=== PATIENT | female | born 1980 | race Caucasian/White ===

== ENCOUNTER 2016-11-24 09:39 | Inpatient (IN) | payer BC ==
[~2016-11-24] VITALS: Ht 170.2 cm; Wt 118.2 kg
--- NOTE | ~2016-11-24 | OR ---
PATIENT'S NAME: DAHIANA KESSLER [facility] AGE: 35 Y [address] ROOM: [place] [address] LOCATION: GO ADMIT DATE: 11/24/2016 OR/Procedure Report DISCHARGE DATE: FAMILY PHYSICIAN: PHYSICIAN, UNKNOWN ATTENDING PHYSICIAN: ADONIS MORALES SURGEON: Adonis Morales MD ESTATE PLANNING PARALEGAL: Nguyen Dodge MD DATE OF PROCEDURE: 11/24/2016 PREOPERATIVE DIAGNOSES: 1. Intrauterine at 27 weeks and 1 day. 2. labor. 3. History of labor. 4. Obesity. POSTOPERATIVE DIAGNOSES: 1. Intrauterine at 27 weeks and 1 day. 2. labor. 3. History of labor. 4. Obesity. PROCEDURE PERFORMED: Primary vertical section. ANESTHESIA: General. FINDINGS: Viable female with score is pending, and weight of 1300 g. Placenta was intact with three-vessel cord. Cord pH is 7.34 with a base deficit of 3.4. ESTIMATED BLOOD LOSS: 1000 mL. COMPLICATIONS: None. INDICATIONS FOR PROCEDURE: The patient is a 35-year-old, G3, P-1-1-0-2 with intrauterine at 27 weeks and 1 day, who presented to the clinic today complaining of contractions every 3 minutes. She was checked and was found to be 400 with a bulging bag and baby was noted to be breech on ultrasound. She was sent over to the hospital. Upon arrival, she was found to be 5 cm, and 15 minutes later, she was found to be 6 cm. She did receive magnesium bolus and Celestone prior to this, but recommendation for delivery was made. The patient consented to section. DESCRIPTION OF PROCEDURE: The patient was taken to the operating room. A Villar catheter was already in place. She was placed in dorsal supine position with leftward tilt. She was then prepped and draped in the usual sterile PATIENT'S NAME: DAHIANA KESSLER [facility] AGE: 35 Y [address] ROOM: [place] [address] LOCATION: [facility] ADMIT DATE: 11/24/2016 OR/Procedure Report DISCHARGE DATE: FAMILY PHYSICIAN: PHYSICIAN, UNKNOWN ATTENDING PHYSICIAN: ADONIS MORALES fashion. General anesthesia was performed and a Pfannenstiel skin incision was made. This was carried down to the underlying fascia. The fascia was then nicked, and the fascia was extended bluntly. The rectus muscles were in the midline. The peritoneum was identified and entered bluntly. This was extended bluntly. A bladder blade was placed for visualization. A vertical incision was then made in the uterus. The feet were grasped. Contraction was noted, and buttocks could not be delivered. Therefore, the incision was extended with bandage scissors. The fetus was delivered to the level of the shoulders. Both arms were flexed and delivered. The head then could not be delivered. Therefore, the incision was again extended with bandage scissors and the head was then delivered. The cord was milked. The cord was then clamped and cut. The was handed to the awaiting delivery team. The uterus was then expressed intact. The uterus was exteriorized and cleared of any remaining clots and debris. It was then closed in a running locked fashion for primary with 0 chromic in two layers followed by a layer of 0 Vicryl in a running locked fashion. Hemostasis was noted. The uterus was replaced into the abdominal cavity. There was an area of bleeding in the midline incision and this area was run over primary with 0 Vicryl. Surgicel was then placed over the incision. The rectus muscles and fascia were inspected and noted to be hemostatic. The fascia was then closed in a running fashion using 0 PDS suture. The subcutaneous tissue was then irrigated and then closed in a running fashion with 0 Vicryl. The skin was then closed with 4-0 Vicryl in a subcuticular fashion followed by Steri-Strips and a pressure dressing. Instrument, sponge, and needle counts were correct prior to abdominal closure and at the conclusion of the case. DISPOSITION: Mom stable. Baby to NICU for prematurity. MD CHELA PICKERING/rosa /[id number] d: 11/24/16 1415 t: 12/01/16 1819, OPERATIVE SUMMARY
[2016-11-24 09:58] LABS: BASOPHIL # 0.1 K/uL (0.0-0.2); BASOPHIL % 0.4 %; EOSINOPHIL # 0.3 K/uL (0.0-0.5); EOSINOPHIL % 1.8 %; HEMATOCRIT 39.7 % (33.0-46.0); HEMOGLOBIN 13.8 g/dL (11.0-15.0); IMMATURE GRANULOCYTE # 0.1 K/uL (0.0-0.3); IMMATURE GRANULOCYTE % 0.6 %; LYMPHOCYTE # 3.9 K/uL (0.8-4.0); LYMPHOCYTE % 24.9 %; MCH 33.7 pg (27.0-34.0); MCHC 34.8 gm/dL (32.0-36.5); MCV 96.8 fl (83.0-98.0); MONOCYTE % 6.3 %; MPV 9.6 fl (9.4-12.4); NEUTROPHIL # (ANC) 10.5 K/uL (1.8-7.8); NRBC % 0 /100WBC (0-0.00); PLATELET COUNT 305 K/uL (150-450); WBC 15.8 K/uL (4.0-11.0)
[2016-11-24 11:36] LABS: BICARBONATE 22.6 mmol/L (18.0-23.0); PCO2 40 mmHg (35-45); PO2 29 mmHg (80-90)
[2016-11-24] MEDS ORDERED: PRENATAL 1+1)(P1 TAB PO (11:54)
[2016-11-24] MEDS ORDERED: PROGESTERO50 MG/1 M1 IM (11:55)
--- NOTE | 2016-11-24 14:13 | NUR ---
1000 Patient arrived at the hospital in active labor and baby breech position. Patient is 27 weeks along. Patient required an emergency CSection. I met with patient's sister who was here with her. Her sister had called patient's Frankie, who was in [place] and was en route to the hospital. Patient delivered a baby girl via csection. Baby was taken to the NICU for care. I returned to the floor at 1100 and patient's Frankie had arrived. I met with him and patient and briefly explained my role with the CM department. I had already been over to the NICU and it appeared that the plan was to send baby girl to [facility] [place]. When I met with parents it appeared that they did not know that this was transpiring so I did not say anything in regards to baby girl transferring. I did discuss with them that sometimes we do send babies this early to [place] and if that does happen I will be happy to help arrange for housing while they are there ([facility]). I will continue to follow and offer supports as needed.
--- NOTE | 2016-11-24 17:58 | NUR ---
Last VS: T:98.1 P:78 R: 16 BP: 117/56 Pain ratin. Last pain med: TORADOL/PERCOCET/MOTRIN Medicated at: 1640/1450/1640 Effective: YES R Lung sounds: CL, L Lung sounds: CL Fundus:,FIRM -1 , Lochia: SM, Breasts: SOFT, PUMPING LAST AT 1730, Nipples: NO PROBLEM Incision: , Incision appearance: MICROFOAM DSG D/I Incision closure: Bowel sounds: Passing flatus: NO Voiding well: CORNELIUS REMOVED AT 1630, NO VOID. Significant event: . UP SITTING IN WHEELCHAIR. PUMPED X1.
[2016-11-25 05:32] LABS: BASOPHIL % 0.1 %; EOSINOPHIL % 0.1 %; HEMATOCRIT 31.8 % (33.0-46.0); HEMOGLOBIN 11.1 g/dL (11.0-15.0); IMMATURE GRANULOCYTE # 0.2 K/uL (0.0-0.3); IMMATURE GRANULOCYTE % 0.9 %; LYMPHOCYTE # 2.3 K/uL (0.8-4.0); LYMPHOCYTE % 9.5 %; MCH 34.6 pg (27.0-34.0); MCHC 34.9 gm/dL (32.0-36.5); MCV 99.1 fl (83.0-98.0); MONOCYTE # 1.9 K/uL (0.0-1.0); MONOCYTE % 7.7 %; NEUTROPHIL # (ANC) 20.1 K/uL (1.8-7.8); NEUTROPHIL % 81.7 %; NRBC % 0 /100WBC (0-0.00); PLATELET COUNT 263 K/uL (150-450); RBC 3.21 M/uL (3.50-5.50); RDW-CV 11.9 % (11.9-14.6)
[2016-11-25 05:40] LABS: WBC 24.7 K/uL (4.0-11.0)
--- NOTE | 2016-11-25 16:45 | NUR ---
Met with mom this morning. The family plans to go to [place] tomorrow once she is discharged. I reserved a room at the [facility] for the family. I spoke with Anay at [facility] when I made the reservation and I gave her name to mom. I provided mom with a brochure and [facility]. No other needs at this time.
[2016-11-26] MEDS ORDERED: SURFAK240 MG PO (10:33)
[2016-11-26] MEDS ORDERED: MOTRIN800 MG PO (10:35)
[2016-11-26] MEDS ORDERED: PERCOCET 5-3251 EACH PO (10:37)
== END 2016-11-26 11:12 | disposition disaster alternative care site (69) | DRG 766 ==
LOC: GOBM 09:39 → GOBS 09:39 → GOBM 09:40 → GOBS 09:44
PROVIDERS: ADMIT Obstetrics & Gynecology
PROC: 10D00Z1 Extraction of Products of Conception, Low, Open Approach (ICD-10-PCS; principal; 2016-11-24)
DX: O60.12X0 Preterm labor second trimester with preterm delivery second trimester, not applicable or unspecified (principal); O64.1XX0 Obstructed labor due to breech presentation, not applicable or unspecified; Z3A.27 27 weeks gestation of pregnancy; Z37.0 Single live birth; Z23 Encounter for immunization
CPT/HCPCS: G0008; J0610; J0690; J0702; J1885; J2001; J2270; J3010; J3475; J7120